=== PATIENT | female | born 1970 | race Caucasian/White ===

== ENCOUNTER 2019-05-13 09:49 | Observation (INO) | payer OTHER ==
--- NOTE | 2019-05-13 10:45 | PDOC ---
History of Present Illness - General Chief Complaint: Lightheaded Stated Complaint: DIZZY/WEAK/NAUSEA Time Seen by Provider: 05/13/19 10:44 History Source: Patient Exam Limitations: No Limitations - History of Present Illness Initial Comments: 05/13/19 11:20 Susu Lou is a 48yF w PMHx migraines presenting w lightheadedness. 8am this morning bent down to tie shoes, sudden onset lightheadedness and dizziness ( head spinning). Denies LOC, head trauma. Was seen 6yrs ago in hospital for lightheadedness attributed to hypokalemia. Does not take any meds. Denies alcohol, smoking, drugs. Denies fever, cough, nausea/vomiting, headache, SOB, chest/AB pain, urinary/bowel movement changes. Past History - Past Medical History Allergies/Adverse Reactions: Allergies Allergy/AdvReac Type Severity Reaction Status Date / Time No Known Allergies Allergy Verified 12/29/16 12:43 Home Medications: Ambulatory Orders Magnesium 600 mg PO DAILY 05/13/19 Vitamin B Complex 1 tab PO DAILY 05/13/19 Anemia: No Asthma: No Cancer: No Cardiac Disorders: No CVA: No COPD: No DVT: No Dementia: No Diabetes: No Dialysis: No GI Disorders: No Disorders: No HTN: No Hypercholesterolemia: No Kidney Stones: No Liver Disease: No Psychiatric Problems: No Seizures: No Thyroid Disease: No Lung CA: No - Surgical History Cholecystectomy: Yes - Immunization History Immunization Up to Date: Yes - Psycho Social/Smoking Cessation Hx Smoking History: Never smoked Have you smoked in the past 12 months: No Hx Alcohol Use: No Drug/Substance Use Hx: No Substance Use Type: None Review of Systems - Review of Systems Constitutional: No: Chills, Fever HEENTM: No: Eye Pain, Recent change in vision, Nose Pain, Throat Pain, Mouth Pain Respiratory: No: Cough, Shortness of Breath Cardiac (ROS): No: Chest Pain, Palpitations, Syncope ABD/GI: No: Abdominal Distended, Constipated, Diarrhea, Nausea, Vomiting : No: Burning, Dysuria, Discharge, Frequency, Flank Pain Musculoskeletal: No: Back Pain, Joint Pain, Joint Swelling, Muscle Pain Integumentary: No: Bruising, Dryness, Erythema Neurological: No: Numbness, Seizure, Tingling, Tremors Psychiatric: No: Anxiety, Depression, Stressors Endocrine: No: Excessive Sweating, Flushing, Intolerance to Cold, Intolerance to Heat Hematologic/Lymphatic: No: Anemia, Blood Clots, Easy Bleeding *Physical Exam - Vital Signs Last Vital Signs Temp Pulse Resp BP Pulse Ox 98.3 F 56 L 16 150/78 97 05/13/19 09:56 05/13/19 10:00 05/13/19 10:00 05/13/19 10:00 05/13/19 09:56 - Physical Exam General Appearance: Yes: Nourished, Appropriately Dressed, Mild Distress HEENT: positive: EOMI, Normal Voice, Hearing Grossly Normal. negative: JAMIL (L pupil 5mm, R pupil 2mm, photophobia causing frontal headache), Scleral Icterus ( R), Scleral Icterus (L), Nasal Congestion, Rhinorrhea Neck: positive: Trachea midline, Supple. negative: Tender, Rigid Respiratory/Chest: positive: Lungs Clear, Normal Breath Sounds. negative: Chest Tender, Respiratory Distress, Crackles, Rales, Rhonchi, Stridor, Wheezing Cardiovascular: positive: Regular Rhythm, S1, S2, Bradycardia. negative: Edema , Murmur Gastrointestinal/Abdominal: positive: Normal Bowel Sounds, Flat, Soft. negative : Tender, Organomegaly, Distended, Guarding Musculoskeletal: negative: CVA Tenderness (R), CVA Tenderness (L) Extremity: positive: Delayed Capillary Refill (3sec) Integumentary: positive: Normal Color. 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 negative: Facial Droop, Numbness, Sensory Deficit, Confused, Disoriented ED Treatment Course - LABORATORY CBC & Chemistry Diagram: 05/13/19 11:20 05/13/19 11:20 Medical Decision Making - Medical Decision Making 05/13/19 11:11 CBC CMP trop coags T&S EKG CXR Head CT/CTA Head CT showed no bleed/infarct/edema/mass effect/fracture EKG shows sinus bradycardia, HR 53, QTc 418, no ST changes CBC CMP normal, neg trop CTA shows no evidence of aneurysm, acute bleed/infarct/stenosis/occulsion. Limited exam d/t pt motion delayed scan w enhancement of venous structures Given 1L NS, tylenol, reglan, meclizine, valium relieved headache, unchanged dizziness. --- Susu Lou is a 48yF w PMHx migraines presenting w lightheadedness, new headache, and unequal pupils. Physical exam concerning for unequal pupils, worsening bilateral frontal headache and dizziness after shining light during exam Head CT/CTA did not show acute bleed/infarct/aneurysm in setting of limited CTA exam. Still concerned for intracranial bleed (new headache, unequal pupils) vs cerebellar stroke (persistent head dizziness after meds, limited CTA) vs migraine (past hx, photophobia) vs vertigo. Low concern for meningitis (no fever , supple neck). No evidence of ACS w neg trop, no ST changes on EKG, not anemic , normal electrolytes. Given 1L NS, tylenol, reglan, meclizine, valium relieved headache, little relief of dizziness. Consulted Dr Cotton neurology regarding persistent vertigo in setting of negative head CT/CTA. Differential bleed vs stroke vs vertigo - advised order brain MRI w/o contrast, Dr will see pt in evening Admit to med/surg hospitalist for intractable vertigo -pending brain MRI [facility] Discharge - Discharge Information Problems reviewed: Yes Clinical Impression/Diagnosis: Vertigo Condition: Stable - Follow up/Referral - Patient Discharge Instructions - Post Discharge Activity
[2019-05-13] MEDS ORDERED: SODIUM CHLORIDE 0.9% 500 ML INFUS.BAG IV ONE (11:00)
[2019-05-13] MEDS ORDERED: ACETAMINOPHEN 1000 MG/100 ML VIAL (NON FORMULARY) IVPB ONE (11:13)
[2019-05-13] MEDS ORDERED: METOCLOPRAMIDE HCL INJECTION 10 MG/2 ML VIAL IVPB ONE (11:13)
[2019-05-13] MEDS ORDERED: ACETAMINOPHEN INJECTION 100 ML IVPB ONE (11:28)
[2019-05-13] MEDS ORDERED: METOCLOPRAMIDE HCL INJECTION 10 MG/2 ML VIAL ONE (11:28)
[2019-05-13 11:47] LABS: BASO % 0.5 % (0-2.0); EOS % 0.3 % (0-4.5); HEMATOCRIT 38.1 % (32.4-45.2); HEMOGLOBIN 12.8 GM/dL (10.7-15.3); LYMPH % 17.6 % (8-40); MCH 26.3 pg (25.7-33.7); MCHC 33.6 g/dl (32.0-36.0); MEAN CELL VOLUME 78.5 fl (80-96); MEAN PLT VOLUME 8.1 fl (7.5-11.1); MONO % 3.6 % (3.8-10.2); PLATELET COUNT 334 K/MM3 (134-434); RBC 4.86 M/mm3 (3.60-5.2); WHITE BLOOD COUNT 6.8 K/mm3 (4.0-10.0)
[2019-05-13 11:57] LABS: INR 0.94 (0.83-1.09); PROTHROMBIN TIME (PATIENT) 11.1 SEC (9.7-13.0)
[2019-05-13 12:00] LABS: ACTIVATED PTT 31.9 SECONDS (25.2-36.5)
[2019-05-13 12:36] LABS: ALBUMIN 3.9 g/dl (3.4-5.0); BILIRUBIN,TOTAL 0.6 mg/dL (0.2-1); CALCIUM 9.1 mg/dL (8.5-10.1); CREATININE 0.5 mg/dL (0.55-1.3); TOT PROT 7.8 g/dl (6.4-8.2)
[2019-05-13] MEDS ORDERED: MECLIZINE HCL 25 MG TABLET (FP) PO ONE (12:48)
[2019-05-13] MEDS ORDERED: MECLIZINE HCL 25 MG TABLET (FP) ONE (13:01)
--- NOTE | 2019-05-13 13:01 | PDOC ---
Attending Attestation - Resident Resident Name: mJ Jean-Baptiste - ED Attending Attestation I have performed the following: I have examined & evaluated the patient, The case was reviewed & discussed with the resident, I agree w/resident's findings & plan, Exceptions are as noted - HPI HPI: 05/13/19 12:57 48 yo F wit h/o migraines, anemia, here with sudden onset headache and vertigo which started at 8 am. pt describes spinning sensation worse with movement and opening eyes. denies feeling off balance, describes roomm spinning. no change to speech or focal weakness. no speech changes. no h/o prior vertigo or cva, no family h/o cva. did not take anything for her pain. no n/v no f/c no trauma . this is different from prior headache bc no associated vertigo in the past. - Physicial Exam PE: 05/13/19 12:58 awake alert lungs clear bilat heart rrr no mrg abd soft nt nd ext wwp. no edema. skin warm and dr no rash. nuero alert oriented x 3. speech clear. 5/5 all four ext. finger to nose normal alt hand movement normal. gait normal. neg romberg. pupils reactive. left pupil slightly larger than right. EOMI, noted mild malalignement with looking down. speech clear. - Medical Decision Making 05/13/19 13:00 48 yo F with h/o anemia, migraines here with headache ad vertigo. differential peripheral vertigo, ich, atypical migraine, sinusitis. plan ct head labs ivf, meclizine reglan. pt ct head negative. will obtain CTA head and neck. Heart Score/ECG Review #1 General ECG Interpretation: Sinus Rhythm, Normal Intervals, No acute ischemic changes Compared to previous ECG there are: Other (sinus bradycardia 53)
[2019-05-13 13:28] LABS: PH,URINE 7.5 (5.0-8.0); URINE APPEARANCE CLEAR; URINE BILIRUBIN NEGATIVE (NEGATIVE); URINE COLOR YELLOW; URINE GLUCOSE (UA) NEGATIVE (NEGATIVE); URINE KETONE NEGATIVE (NEGATIVE); URINE LEUK ESTERASE NEGATIVE (NEGATIVE); URINE NITRITE NEGATIVE (NEGATIVE); URINE PROTEIN NEGATIVE (NEGATIVE); URINE UROBILINOGEN 0.2 mg/dL (0.2-1.0)
[2019-05-13] MEDS ORDERED: diazePAM 5 MG TABLET PO ONE (14:11)
[2019-05-13] MEDS ORDERED: diazePAM 2 MG TABLET ONE (14:14)
--- NOTE | 2019-05-13 15:12 | CON.NEURO ---
Consult Consult Specialty:: Yury Referred by:: ER Reason for Consultation:: SHARPE and dizzy - History of Present Illness History of Present Illness: 48-year-old right-handed female patient with history of anemia bronchial asthma Headache in the past Presented to the hospital with a chief complaint of sudden onset of headache and dizziness this morning. Patient described headache as tension-like. Patient came into the emergency room no loss of consciousness no recent travel no neck pain. CAT scan of the head was done immediatelyto rule out intracerebral hemorrhage I reviewed the images. Patient received IV fluid IV Reglan in the painkiller. Patient with improvement of the headache. There is no relief of the dizziness. 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 - Alcohol/Substance Use Hx Alcohol Use: No - Smoking History Smoking history: Never smoked Have you smoked in the past 12 months: No Home Medications - Allergies Allergies/Adverse Reactions: Allergies Allergy/AdvReac Type Severity Reaction Status Date / Time No Known Allergies Allergy Verified 12/29/16 12:43 - Home Medications Home Medications: Ambulatory Orders Magnesium 600 mg PO DAILY 05/13/19 Vitamin B Complex 1 tab PO DAILY 05/13/19 Family Medical History Family History: Unremarkable Review of Systems - Review of Systems Constitutional: reports: No Symptoms Eyes: reports: No Symptoms Integumentary: reports: Other Neurological: reports: Dizziness, Headache, Incoordination, Numbness, Parasthesia Physical Exam-Neuro Vital Signs: Vital Signs Temperature 98.3 F 05/13/19 09:56 Pulse Rate 60 05/13/19 13:58 Respiratory Rate 16 05/13/19 13:58 Blood Pressure 111/57 L 05/13/19 13:58 O2 Sat by Pulse Oximetry (%) 98 05/13/19 13:58 Constitutional: Yes: Well Nourished Neck: Yes: WNL Labs: CBC, BMP 05/13/19 11:20 05/13/19 11:20 INR, PTT INR 0.94 (0.83-1.09) 05/13/19 11:20 - Neuro Exam Level Of Consciousness: Yes: Oriented to Person, Oriented to Place, Oriented to Time Eyes: Yes: PERRLA Speech: WNL Dominant Hand: Right Cranial Nerves II-XII Intact: Yes Gag: Present DTR's: 1+ Left Bicep, 1+ Right Bicep, 1+ Left Tricep, 1+ Right Tricep Babinski: Absent Response to light touch: Normal Response to pain prick: Normal Response to temperature: Normal Response to vibration: Normal Motor Strength: 3/5: Left Arm, Right Arm, Left Leg, Right Leg Gait: Deferred Imaging - Results Cat Scan: Image Reviewed Problem List - Problems (1) Headache Assessment/Plan: vertiginous migraine Viral syndrome no evidence of acute 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 nneuro checks every 1 hour. 2. Headache diary. 3. Weight loss. 4. Trial of Fioricet when necessary headache. 55. ESR and C-reactive protein. 6. MRI of the brain with no contrast. 7. IV hydration. 8. Meclizine 25 mg by mouth every 12 Thank you very much for allowing me to be part of this patient's neurological care Code(s): R51 - HEADACHE
[2019-05-13] MEDS ORDERED: SODIUM CHLORIDE 1,000 ML IV SCH (15:45)
[2019-05-13] MEDS ORDERED: traMADol HCL 50 MG TABLET ONE (15:47)
[2019-05-13] MEDS ORDERED: ACETAMINOPHEN/CAFFEINE/BUTALBITAL 1 TAB PO PRN (16:41)
[2019-05-13] MEDS ORDERED: FOLIC ACID INJECTION - 1 MG, THIAMINE HCL 100 MG, MULTIVIT INJECTION ADULT 10 ML in SOD... IVPB ONE (16:41)
--- NOTE | 2019-05-13 16:52 | HP ---
CHIEF COMPLAINT: dizziness with headache PCP: Dr. Berg HISTORY OF PRESENT ILLNESS: Patient is 48 y/o female with a history of anemia presents with headache and sensation of the room spinning. Patient reports that when she work up this morning she felt as if the room was spinning. The spinning sensation causes her to have a headache. If she keeps her eyes shut then the headache goes away. The headache is at the front of her head and she rates it a 5/10. The patient reports she has had headaches but not like this. Denies nausea, vomiting, or any recent viral symptoms. ER course was notable for: (1) (2) (3) Recent Travel: PAST MEDICAL HISTORY: anemia PAST SURGICAL HISTORY: cholecystectomy Social History: Smoking: denies Alcohol: very occasionally Drugs: denies Allergies No Known Allergies Allergy (Verified 12/29/16 12:43) HOME MEDICATIONS: Home Medications Medication Instructions Recorded Magnesium 600 mg PO DAILY 05/13/19 Vitamin B Complex 1 tab PO DAILY 05/13/19 REVIEW OF SYSTEMS CONSTITUTIONAL: Absent: fever, chills, diaphoresis, generalized weakness, malaise, loss of appetite, weight change HEENT: Absent: rhinorrhea, nasal congestion, throat pain, throat swelling, difficulty swallowing, mouth swelling, ear pain, eye pain, visual changes CARDIOVASCULAR: Absent: chest pain, syncope, palpitations, irregular heart rate, lightheadedness , peripheral edema RESPIRATORY: Absent: cough, shortness of breath, dyspnea with exertion, orthopnea, wheezing, stridor, hemoptysis GASTROINTESTINAL: Absent: abdominal pain, abdominal distension, nausea, vomiting, diarrhea, constipation, melena, hematochezia GENITOURINARY: Absent: dysuria, frequency, urgency, hesitancy, hematuria, flank pain, genital pain MUSCULOSKELETAL: Absent: myalgia, arthralgia, joint swelling, back pain, neck pain SKIN: Absent: rash, itching, pallor HEMATOLOGIC/IMMUNOLOGIC: Absent: easy bleeding, easy bruising, lymphadenopathy, frequent infections ENDOCRINE: Absent: unexplained weight gain, unexplained weight loss, heat intolerance, cold intolerance NEUROLOGIC: headache, spinning of room Absent: focal weakness or paresthesias, dizziness, unsteady gait, seizure, mental status changes, bladder or bowel incontinence PSYCHIATRIC: Absent: anxiety, depression, suicidal or homicidal ideation, hallucinations. PHYSICAL EXAMINATION Vital Signs Temperature 97.7 F 10/04/19 17:22 Pulse Rate 64 05/13/19 17:22 Respiratory Rate 20 05/13/19 17:22 Blood Pressure 134/59 L 05/13/19 17:22 O2 Sat by Pulse Oximetry (%) 100 05/13/19 17:33 GENERAL: Awake, alert, and fully oriented, in distress, keeps eyes closed EYES: Pupils unequal, left puil 1mm smaller then R, EOMI EARS, NOSE, THROAT: Moist mucous membranes. LUNGS: Breath sounds equal, clear to auscultation bilaterally. No wheezes, and no crackles. No accessory muscle use. HEART: Regular rate and rhythm, normal S1 and S2 without murmur, rub or gallop. ABDOMEN: Soft, nontender, not distended, normoactive bowel sounds, no guarding, no rebound, no masses. MUSCULOSKELETAL: Normal range of motion at all joints.rness. LOWER EXTREMITIES: 2+ pulses, warm, well-perfused. No calf tenderness. no pitting edema NEUROLOGICAL: Cranial nerves II-XII intact. Normal speech. Normal gait. PSYCHIATRIC: Cooperative. Good eye contact. Appropriate mood and affect. SKIN: Warm, dry, normal turgor, no rashes or lesions noted, normal capillary refill. CBC, BMP 05/13/19 11:20 05/13/19 11:20 ASSESSMENT/PLAN: Patient is 48 y/o female with a history of anemia presents with headache and sensation of the room spinning. #vertigo with 2/2 headache - Patient seen by neurologist Dr. Cotton - Head CT, CTA all negative, f/u MRI - meclizine 12.5 BID - fiorcet as needed - banana bag for volume repletion - valium 2 given once, will order valium 5 if brain MRI normal - discuss weight loos and headache diary, patient to f/u as an outpatient with Dr. Cotton #anemia - stable, not on medicaitons #DVT ppx - lovenox 40 sq daily Dispo: monitor on med surg Visit type - Emergency Visit Emergency Visit: Yes ED Registration Date: 05/13/19 Care time: The patient presented to the Emergency Department on the above date and was hospitalized for further evaluation of their emergent condition. - New Patient This patient is new to me today: Yes Date on this admission: 05/15/19 - Critical Care Critical Care patient: No ATTENDING PHYSICIAN STATEMENT I saw and evaluated the patient. I reviewed the resident's note and discussed the case with the resident. I agree with the resident's findings and plan as documented. SUBJECTIVE: OBJECTIVE: ASSESSMENT AND PLAN:
[2019-05-13 17:29] VITALS: BMI 32.1
[2019-05-13] MEDS: MECLIZINE HCL 12.5 MG TABLET PO PRN (17:53)
--- NOTE | 2019-05-13 17:53 | PN ---
Teaching Attending Note Name of Resident: Jodie Blankenship ATTENDING PHYSICIAN STATEMENT I saw and evaluated the patient. I reviewed the resident's note and discussed the case with the resident. I agree with the resident's findings and plan as documented. SUBJECTIVE: 48yo F wtih PMH anemia and migraines presented with vertigo that started suddenly this AM. mild relief with treatment here but still affecting ability to ambulate. symptoms go away when eyes are shut. denies CP, SOB, fever, chills , tinnitus, N/V/C/D, blurred vision, recent URI no new medications OTC or Rx OBJECTIVE: Last Vital Signs Temp Pulse Resp BP Pulse Ox 97.7 F 64 20 134/59 L 100 05/13/19 17:22 05/13/19 17:22 05/13/19 17:22 05/13/19 17:22 05/13/19 17:33 General NAD HEENT +photophibia. CV S1 S2 RRR no murmur/rub/gallop lungs CTA B/L no wheezing/rales/rhonchi Abdomen soft NT/ND Neuro refused to participate in exam ASSESSMENT AND PLAN: 48yo F wtih PMH anemia and migraines presenting with vertigo 1. Intractable vertigo- minimal relief with valium/reglan/NS given in the ER. imaging done. seen by neuro. will obtain MRI. give meclizine and banana bag. try valium 5mg x1. fiorcet prn SHARPE. follow up neuro recommendations 2. anemia- hgb stable 3. will monitor f/u MRI and monitor for improvement in symptoms
[2019-05-14 08:28] LABS: BASO % 0.3 % (0-2.0); EOS % 1.6 % (0-4.5); LYMPH % 42.2 % (8-40); MCH 26.3 pg (25.7-33.7); MCHC 33.3 g/dl (32.0-36.0); MEAN CELL VOLUME 78.9 fl (80-96); MEAN PLT VOLUME 8.1 fl (7.5-11.1); MONO % 6.5 % (3.8-10.2); NEUT % 49.4 % (42.8-82.8); PLATELET COUNT 336 K/MM3 (134-434); RBC 4.56 M/mm3 (3.60-5.2); RDW 15.4 % (11.6-15.6); WHITE BLOOD COUNT 5.2 K/mm3 (4.0-10.0)
[2019-05-14 08:34] LABS: ALBUMIN 3.7 g/dl (3.4-5.0); ALK PHOS 107 U/L (45-117); ANION GAP 7 MMOL/L (8-16); BILIRUBIN,TOTAL 0.5 mg/dL (0.2-1); BLOOD UREA NITROGEN 13.3 mg/dL (7-18); CALCIUM 8.7 mg/dL (8.5-10.1); CHLORIDE 109 mmol/L (98-107); CO2 25 mmol/L (21-32); CREATININE 0.6 mg/dL (0.55-1.3); GLUCOSE,RANDOM 80 mg/dL (74-106); MAGNESIUM 2.2 mg/dL (1.8-2.4); PHOSPHOROUS 3.7 mg/dL (2.5-4.9); POTASSIUM 4.1 mmol/L (3.5-5.1); SGOT/AST 17 U/L (15-37); SGPT/ALT 27 U/L (13-61); SODIUM 141 mmol/L (136-145); TOT PROT 7.2 g/dl (6.4-8.2)
[2019-05-14] MEDS ORDERED: ENOXAPARIN NA (PORCINE) 40 MG/0.4 ML DISP.SYRIN SQ SCH (10:00)
--- NOTE | 2019-05-14 10:01 | EKG ---
Test Reason : Blood Pressure : / mmHG Vent. Rate : 053 BPM Atrial Rate : 053 BPM P-R Int : 132 ms QRS Dur : 078 ms QT Int : 446 ms P-R-T Axes : 029 031 044 degrees QTc Int : 418 ms SINUS BRADYCARDIA EARLY REPOLARIZATION NO PREVIOUS ECGS AVAILABLE Confirmed by CHRIS RITCHIE MD ([id number]) on 05/14/2019 10:00:47 AM Referred By: Confirmed By:CHRIS RITCHIE MD
[2019-05-14] MEDS: MECLIZINE HCL 12.5 MG TABLET PO PRN (11:30)
[2019-05-14 11:33] VITALS: BP 117/71; PULSE 57; TEMP 99.2
--- NOTE | 2019-05-14 12:00 | DS ---
Physical Exam: SUBJECTIVE: Patient seen and examined. symptoms resolved. feeling much better today.denies CP, SOB,f ever, chills, N/V/C/D, tinnitus, blurred vision or vertigo OBJECTIVE: Vital Signs Period Temp Pulse Resp BP Sys/Tejeda Pulse Ox Last 24 Hr 97.7 F-99.2 F 52-66 16-20 108-134/57-78 98-100 PHYSICAL EXAM GENERAL: The patient is awake, alert, and fully oriented, in no acute distress. HEAD: Normal with no signs of trauma. EYES: PERRL, extraocular movements intact, sclera anicteric, conjunctiva clear. no nystagmus ENT: Ears normal, nares patent, oropharynx clear without exudates, moist mucous membranes. NECK: Trachea midline, full range of motion, supple. LUNGS: Breath sounds equal, clear to auscultation bilaterally, no wheezes, no crackles, no accessory muscle use. HEART: Regular rate and rhythm, S1, S2 without murmur, rub or gallop. ABDOMEN: Soft, nontender, nondistended, normoactive bowel sounds, no guarding, no rebound, no hepatosplenomegaly, no masses. EXTREMITIES: 2+ pulses, warm, well-perfused, no edema. NEUROLOGICAL: Cranial nerves II through XII grossly intact. Normal speech, gait not observed. PSYCH: Normal mood, normal affect. SKIN: Warm, dry, normal turgor, no rashes or lesions noted. LABS Laboratory Results - last 24 hr 05/13/19 05/13/19 05/13/19 11:20 11:20 11:20 WBC 6.8 RBC 4.86 Hgb 12.8 Hct 38.1 MCV 78.5 L MCH 26.3 D MCHC 33.6 RDW 15.0 D Plt Count 334 MPV 8.1 Absolute Neuts (auto) 5.3 Neutrophils % 78.0 D Lymphocytes % 17.6 D Monocytes % 3.6 L Eosinophils % 0.3 D Basophils % 0.5 Nucleated RBC % 0 PT with INR INR PTT (Actin FS) Sodium 137 Potassium 5.0 Chloride 107 Carbon Dioxide 25 Anion Gap 6 L BUN 13.0 Creatinine 0.5 L Est GFR (CKD-EPI)AfAm 130.79 Est GFR (CKD-EPI)NonAf 112.85 Random Glucose 97 Calcium 9.1 Phosphorus Magnesium Total Bilirubin 0.6 AST 33 ALT 30 Alkaline Phosphatase 111 Creatine Kinase 105 Troponin I < 0.02 Total Protein 7.8 Albumin 3.9 Urine Color Urine Appearance Urine pH Ur Specific [place] Urine Protein Urine Glucose (UA) Urine Ketones Urine Blood Urine Nitrite Urine Bilirubin Urine Urobilinogen Ur Leukocyte Esterase Urine HCG, Qual Blood Type Antibody Screen 05/13/19 05/13/19 05/13/19 11:20 11:20 13:00 WBC RBC Hgb Hct MCV MCH MCHC RDW Plt Count MPV Absolute Neuts (auto) Neutrophils % Lymphocytes % Monocytes % Eosinophils % Basophils % Nucleated RBC % PT with INR 11.10 INR 0.94 PTT (Actin FS) 31.9 Sodium Potassium Chloride Carbon Dioxide Anion Gap BUN Creatinine Est GFR (CKD-EPI)AfAm Est GFR (CKD-EPI)NonAf Random Glucose Calcium Phosphorus Magnesium Total Bilirubin AST ALT Alkaline Phosphatase Creatine Kinase Troponin I Total Protein Albumin Urine Color Urine Appearance Urine pH Ur Specific [place] Urine Protein Urine Glucose (UA) Urine Ketones Urine Blood Urine Nitrite Urine Bilirubin Urine Urobilinogen Ur Leukocyte Esterase Urine HCG, Qual Negative Blood Type Cancelled Antibody Screen Cancelled 05/13/19 05/14/19 05/14/19 13:00 07:20 07:20 WBC 5.2 RBC 4.56 Hgb 12.0 Hct 36.0 MCV 78.9 L MCH 26.3 MCHC 33.3 RDW 15.4 Plt Count 336 MPV 8.1 Absolute Neuts (auto) 2.6 Neutrophils % 49.4 D Lymphocytes % 42.2 H D Monocytes % 6.5 D Eosinophils % 1.6 D Basophils % 0.3 Nucleated RBC % 0 PT with INR INR PTT (Actin FS) Sodium 141 Potassium 4.1 Chloride 109 H Carbon Dioxide 25 Anion Gap 7 L BUN 13.3 Creatinine 0.6 Est GFR (CKD-EPI)AfAm 123.18 Est GFR (CKD-EPI)NonAf 106.28 Random Glucose 80 Calcium 8.7 Phosphorus 3.7 Magnesium 2.2 Total Bilirubin 0.5 AST 17 ALT 27 Alkaline Phosphatase 107 Creatine Kinase Troponin I Total Protein 7.2 Albumin 3.7 Urine Color Yellow Urine Appearance Clear Urine pH 7.5 D Ur Specific [place] 1.006 L Urine Protein Negative Urine Glucose (UA) Negative Urine Ketones Negative Urine Blood Negative Urine Nitrite Negative Urine Bilirubin Negative Urine Urobilinogen 0.2 Ur Leukocyte Esterase Negative Urine HCG, Qual Blood Type Antibody Screen HOSPITAL COURSE: Date of Admission:05/13/19 Date of Discharge: 05/14/19 Admitting diagnosis: INtractable vertigo Pre hospital course 48 y/o female with a history of anemia presents with headache and sensation of the room spinning. Patient reports that when she work up this morning she felt as if the room was spinning. The spinning sensation causes her to have a headache. If she keeps her eyes shut then the headache goes away. The headache is at the front of her head and she rates it a 5/10. The patient reports she has had headaches but not like this. Denies nausea, vomiting, or any recent viral symptoms. SUbsequent hospital course medicine observation. was started on IVF, reglan and valium with no improvement. was given fiorcet, meclizine and more IVF with slow and gradual improvment.MRI brain negative. seen by neuro. was d/c home with follow up. Istop Reference #: [id number] fiorcet 12 tabs given Minutes to complete discharge: 40 Discharge Summary Problems reviewed: Yes Reason For Visit: VERTIGO Current Active Problems Headache (Acute) Vertigo (Acute) - Instructions Diet, Activity, Other Instructions: You were observed in the hospital due to your dizziness. Your symptoms improved with fluids and medication known as meclizine All your studies were negative for a cause of your dizziness and likely due to vertigo Please stay hydrated. take meclizine as needed for dizzyness You can take fiorcet as needed. This is a controlled substance. Can cause drowsiness and fatigue. do not drive or operate machinery when using Keep a diary of your headaches and bring it with you to your next appointment Follow up with your primary care doctor in 1 week. Discuss with them if you continue to experience symptoms Follow up with neurology as further testing might be needed if your symptoms continue Return to the ER if your symptoms worsen or associated with vision changes or chest pain Referrals: Jarett Cotton MD [Staff Physician] - Disposition: HOME - Home Medications Comprehensive Discharge Medication List: Ambulatory Orders Magnesium 600 mg PO DAILY 05/13/19 Vitamin B Complex 1 tab PO DAILY 05/13/19 Acetaminophen/Caffeine/Butalb [Fioricet -] 1 tablet PO Q6H PRN #12 tablet MDD 4 tabs 05/14/19 Meclizine HCl [Antivert -] 12.5 mg PO BID PRN #60 tablet 05/14/19 Prescription Drug Monitoring Program (I-STOP) results: I-STOP reviewed and no issues identified (Reference #: [id number]) This patient is new to me today: No Emergency Visit: Yes ED Registration Date: 05/13/19 Care time: The patient presented to the Emergency Department on the above date and was hospitalized for further evaluation of their emergent condition. Critical Care patient: No - Discharge Referral Referred to [facility] Med P.C.: No
--- NOTE | 2019-05-14 12:11 | PN ---
Progress Note, Physician History of Present Illness: vents noted chart reviewed MRI of the brain is normal No fever No neck pain Dizziness much better - Current Medication List Current Medications: Active Medications Acetaminophen/Butalbital/Caffeine (Fioricet -) 1 tablet PO Q6H PRN PRN Reason: HEADACHE Enoxaparin Sodium (Lovenox -) 40 mg SQ DAILY ANGELO Last Admin: 05/14/19 11:24 Dose: Not Given Meclizine HCl (Antivert -) 12.5 mg PO BID PRN PRN Reason: VERTIGO Last Admin: 05/14/19 11:30 Dose: 12.5 mg - Objective Vital Signs: Vital Signs Temperature 99.2 F 05/14/19 10:00 Pulse Rate 57 L 05/14/19 10:00 Respiratory Rate 20 05/14/19 10:00 Blood Pressure 117/71 05/14/19 10:00 O2 Sat by Pulse Oximetry (%) 100 05/13/19 22:00 Constitutional: Yes: Well Nourished Eyes: Yes: WNL HENT: Yes: WNL Neurological: Yes: Alert, Oriented, Babinski negative ...Motor Strength: WNL Labs: CBC, BMP 05/14/19 07:20 05/14/19 07:20 INR, PTT INR 0.94 (0.83-1.09) 05/13/19 11:20 Problem List - Problems (1) Headache Assessment/Plan: neurologically okay to go home. Headache diary. Meclizine when necessary headache and dizziness. Weight-loss Code(s): R51 - HEADACHE
== END 2019-05-14 15:14 | disposition home or self-care (01) ==
LOC: JER 09:49 → INTOOBSV 15:01 → JERBED 15:01 → UNDOADMOB 15:01 → MERGE 16:45 → JERBED 16:45 → J8W 17:44
PROVIDERS: ADMIT Internal Medicine; ATTEND Internal Medicine
PROC: 3E033GC Introduction of Other Therapeutic Substance into Peripheral Vein, Percutaneous Approach (ICD-10-PCS; principal; 2019-05-13)
DX: R51 Headache (principal); R42 Dizziness and giddiness
CPT/HCPCS: 36415; 70450-TC; 70496-TC; 70551-TC; 71045-TC-FY; 80053; 81003; 82550; 83735; 84100; 84484; 84703; 85025; 85610; 85651; 85730; 86140; 87086; 93005; 93010; 96365; 96366; 96375; 99285-25; G0378; J0131; J7030

== ENCOUNTER 2020-02-26 12:42 | Emergency (ER) | payer OTHER ==
[2020-02-26 12:47] VITALS: BMI 33.6
--- NOTE | 2020-02-26 12:47 | PDOC ---
Rapid Medical Evaluation Chief Complaint: Pain Time Seen by Provider: 02/26/20 12:44 Medical Evaluation: Allergies Allergy/AdvReac Type Severity Reaction Status Date / Time No Known Allergies Allergy Verified 06/11/15 18:14 02/26/20 12:44 49 year old female pmhx of vertigo complaining of trouble urinating and lower abdominal pain fever of 101 denies nausea vomiting hematuria dysuria PE + B/L CVAT (mild) TTP over suprapubic area Plan: UA, UC CBC CMP Pt to precede to ED for further management and care
[2020-02-26] MEDS ORDERED: SODIUM CHLORIDE 0.9% 500 ML INFUS.BAG IV ONE (13:29)
[2020-02-26] MEDS ORDERED: KETOROLAC TROMETHAMINE 30 MG/1 ML VIAL IVPUSH ONE (13:29)
[2020-02-26] MEDS ORDERED: KETOROLAC TROMETHAMINE 30 MG/1 ML VIAL ONE (13:29)
--- NOTE | 2020-02-26 13:42 | PDOC ---
History of Present Illness - General Chief Complaint: Pain Stated Complaint: ADBOMINAL PAIN Time Seen by Provider: 02/26/20 12:44 History Source: Patient Exam Limitations: No Limitations - History of Present Illness Initial Comments: 02/26/20 13:30 Patient is a 49-year-old female with no past medical history here with complaints of generalized abdominal pain x2 weeks. Patient states the pain is crampy type that radiates from her abdomen to bilateral back, which is continuous currently, rates pain at 8/10. States she took Tylenol with some relief no pain is 5/10. Also mention is that the pain is more prominent on urination. Denies fever, chills, nausea, vomiting. However, notes that she has had decreased appetite and that the pain is worse with eating. PMD: Dr. Cordova PMHX: as above PSOCHX: neg etoh, drug, cig ALL: NKDA GENERAL/CONSTITUTIONAL: [No fever or chills. No weakness. No weight change.] HEAD, EYES, EARS, NOSE AND THROAT: [No change in vision. No ear pain or discharge. No sore throat.] CARDIOVASCULAR: [No chest pain or shortness of breath.] RESPIRATORY: [No cough, wheezing, or hemoptysis.] GASTROINTESTINAL: [No nausea, vomiting, diarrhea or constipation. No rectal bleeding.] GENITOURINARY: [(+) dysuria, (-) frequency, or change in urination.] MUSCULOSKELETAL: [No joint or muscle swelling or pain. No neck or back pain.] SKIN AND BREASTS: [No rash or easy bruising.] NEUROLOGIC: [No headache, vertigo, loss of consciousness, or loss of sensation.] PSYCHIATRIC: [No depression or anxiety.] ENDOCRINE: [No increased thirst. No abnormal weight change.] HEMATOLOGIC/LYMPHATIC: [No anemia, easy bleeding, or history of blood clots.] ALLERGIC/IMMUNOLOGIC: [No hives or skin allergy. No latex allergy.] GENERAL: [The patient is awake, alert, and fully oriented, in no acute distress.] HEAD: [Normal with no signs of trauma.] EYES: [Pupils equal, round and reactive to light, extraocular movements intact, sclera anicteric, conjunctiva clear.] ENT: [Ears normal, nares patent, oropharynx clear without exudates. Moist mucous membranes.] NECK: [Normal range of motion, supple without lymphadenopathy, JVD, or masses.] LUNGS: [Breath sounds equal, clear to auscultation bilaterally. No wheezes, and no crackles.] HEART: [Regular rate and rhythm, normal S1 and S2 without murmur, rub.] ABDOMEN: [Soft, (+) tenderness generalized abd, normoactive bowel sounds. No guarding, no rebound. No masses.] EXTREMITIES: [Normal range of motion, no edema. No clubbing or cyanosis. No cords, erythema, or tenderness.] NEUROLOGICAL: [Cranial nerves II through XII grossly intact. Normal speech, normal gait.] PSYCH: [Normal mood, normal affect.] SKIN: [Warm, Dry, normal turgor, no rashes or lesions noted.] Past History - Medical History Allergies/Adverse Reactions: Allergies Allergy/AdvReac Type Severity Reaction Status Date / Time No Known Allergies Allergy Verified 02/26/20 12:47 Home Medications: Ambulatory Orders Acetaminophen [Tylenol .Regular Strength -] 650 mg PO Q4H PRN #0 tablet 06/20/15 Magnesium 600 mg PO DAILY 05/13/19 Vitamin B Complex 1 tab PO DAILY 05/13/19 Acetaminophen/Caffeine/Butalb [Fioricet Tablets] 1 tablet PO Q6H PRN #12 tablet MDD 4 tabs 05/14/19 Meclizine HCl [Antivert -] 12.5 mg PO BID PRN #60 tablet 05/14/19 Amoxicillin/Potassium Clav [Augmentin 875-125 Tablet] 1 each PO BID #20 tablet 02/26/20 Ibuprofen [Motrin -] 600 mg PO QID #28 tablet 02/26/20 Anemia: No Asthma: No Cancer: No Cardiac Disorders: No CVA: No COPD: No DVT: No Dementia: No Diabetes: No Dialysis: No GI Disorders: No Disorders: No HTN: No Hypercholesterolemia: No Kidney Stones: No Liver Disease: No Psychiatric Problems: No Seizures: No Thyroid Disease: No Lung CA: No - Surgical History Cholecystectomy: Yes - Immunization History Immunization Up to Date: Yes - Psycho-Social/Smoking History Smoking History: Never smoked Have you smoked in the past 12 months: No - Substance Abuse Hx (Audit-C & DAST Scrn) How often the patient has a drink containing alcohol: Never Score: In Men: 4 or > Positive; In Women: 3 or > Positive: 0 Screen Result (Pos requires Nsg. Audit-10AR): Negative *Physical Exam - Vital Signs Last Vital Signs Temp Pulse Resp BP Pulse Ox 99.1 F 84 18 106/70 97 02/26/20 12:43 02/26/20 12:43 02/26/20 12:43 02/26/20 12:43 02/26/20 12:43 ED Treatment Course - LABORATORY CBC & Chemistry Diagram: 02/26/20 13:41 02/26/20 13:41 Medical Decision Making - Medical Decision Making 02/26/20 13:30 Patient is a 49-year-old female with no past medical history here with compl aints of generalized abdominal pain x2 weeks. Patient states the pain is crampy type that radiates from her abdomen to bilateral back, which is continuous currently, rates pain at 8/10. States she took Tylenol with some relief no pain is 5/10. Also mention is that the pain is more prominent on urination. Denies fever, chills, nausea, vomiting. However, notes that she has had decreased appetite and that the pain is worse with eating. r/o Diverticulitis labs, pain meds CTAP Patient improved feels improved after Toradol pain medication 02/26/20 16:08 CT reviewed notes diverticulitis. We will give Augmentin p.o. and discharge with instructions to follow-up with a cook taco. I discussed the physical exam findings, ancillary test results and final diagnoses with the patient. I answered all of the patient's questions. The patient was satisfied with the care received and felt comfortable with the discharge plan and treatment plan. The Patient agrees to follow up with the primary care physician within 24-72 hours. Discharge - Discharge Information Problems reviewed: Yes Clinical Impression/Diagnosis: Diverticulitis Abdominal pain Qualifiers: Abdominal location: generalized Qualified Code(s): R10.84 - Generalized abdominal pain Condition: Stable Disposition: HOME - Additional Discharge Information Prescriptions: Amoxicillin/Potassium Clav [Augmentin 875-125 Tablet] 1 each PO BID #20 tablet Ibuprofen [Motrin -] 600 mg PO QID #28 tablet - Follow up/Referral Referrals: Judy Cordova [Primary Care Provider] - Michael Santana DO [Staff Physician] - - Patient Discharge Instructions Patient Printed Discharge Instructions: DI for Diverticulitis Additional Instructions: Your Discharge Instructions: You must call primary care physician within 24 hours to arrange follow-up. Return to the Emergency Department with any new, persistent or worsening symptoms, for fever, chills, SOB, dizziness or any other concerning changes that may occur. You must follow-up with a cook taco. Call for an appointment. - Post Discharge Activity
[2020-02-26 13:56] LABS: BASO % 0.2 % (0-2.0); EOS % 0.5 % (0-4.5); HEMATOCRIT 34.7 % (32.4-45.2); HEMOGLOBIN 11.6 GM/dL (10.7-15.3); LYMPH % 18.3 % (8-40); MCH 26.2 pg (25.7-33.7); MCHC 33.4 g/dl (32.0-36.0); MEAN CELL VOLUME 78.5 fl (80-96); MONO % 7.7 % (3.8-10.2); NEUT % 73.3 % (42.8-82.8); PLATELET COUNT 350 K/MM3 (134-434); RBC 4.43 M/mm3 (3.60-5.2); RDW 13.6 % (11.6-15.6); WHITE BLOOD COUNT 8.9 K/mm3 (4.0-10.0)
[2020-02-26 14:10] LABS: EPI CELLS 4 /uL (0-25.1); HYALINE CASTS 0 /uL (0-3.1); URINE APPEARANCE CLEAR; URINE BACTERIA 48 /uL (0-1359); URINE BILIRUBIN NEGATIVE (NEGATIVE); URINE COLOR YELLOW; URINE GLUCOSE (UA) NEGATIVE (NEGATIVE); URINE KETONE NEGATIVE (NEGATIVE); URINE LEUK ESTERASE NEGATIVE (NEGATIVE); URINE NITRITE NEGATIVE (NEGATIVE); URINE PROTEIN NEGATIVE (NEGATIVE); URINE RBC 7 /uL (0-23.9); URINE UROBILINOGEN 0.2 mg/dL (0.2-1.0); URINE WBC 1 /uL (0-25.8)
[2020-02-26 14:30] LABS: ALBUMIN 3.7 g/dl (3.4-5.0); BILIRUBIN,TOTAL 0.6 mg/dL (0.2-1); BLOOD UREA NITROGEN 11.7 mg/dL (7-18); CALCIUM 9.2 mg/dL (8.5-10.1); CREATININE 0.6 mg/dL (0.55-1.3); POTASSIUM 4.4 mmol/L (3.5-5.1)
[2020-02-26] MEDS ORDERED: AMOX TR/POT CLAV 875MG/125MG TABLETS (FP) PO ONE (16:04)
[2020-02-26] MEDS ORDERED: AMOX TR/POT CLAV 875MG/125MG TABLETS (FP) ONE (16:35)
[2020-02-26 16:38] VITALS: BP 115/72; PULSE 72; TEMP 98.1
== END 2020-02-26 16:30 | disposition home or self-care (01) ==
LOC: JER 12:42
PROC: 3E033GC Introduction of Other Therapeutic Substance into Peripheral Vein, Percutaneous Approach (ICD-10-PCS; principal; 2020-02-26)
DX: K57.92 Diverticulitis of intestine, part unspecified, without perforation or abscess without bleeding (principal)
CPT/HCPCS: 36415; 74177-TC; 80053; 81003; 85025; 87086; 87186; 99285-25; Q9967

== ENCOUNTER 2021-01-12 16:00 | Emergency (ER) | payer OTHER ==
[2021-01-12 16:06] VITALS: BP 120/72; PULSE 71; TEMP 98.6; BMI 32.3
[2021-01-12] MEDS ORDERED: LIDOCAINE 5% TOPICAL PATCH TP ONE (16:37)
[2021-01-12] MEDS ORDERED: LIDOCAINE 5% TOPICAL PATCH ONE (16:37)
[2021-01-12] MEDS ORDERED: KETOROLAC TROMETHAMINE 60 MG/2 ML VIAL IM ONE (16:37)
[2021-01-12] MEDS ORDERED: KETOROLAC TROMETHAMINE 30 MG/1 ML VIAL ONE (16:37)
== END 2021-01-12 18:30 | disposition home or self-care (01) ==
LOC: JERFT 16:00
PROC: 3E0233Z Introduction of Anti-inflammatory into Muscle, Percutaneous Approach (ICD-10-PCS; principal; 2021-01-12)
DX: M25.551 Pain in right hip (principal); M25.561 Pain in right knee; M25.511 Pain in right shoulder
CPT/HCPCS: 73030-TC-LT-FY; 73523-TC-FY; 73562-TC-RT-FY; 99285-25